=== PATIENT | male | born 1945 | race Caucasian/White ===

== ENCOUNTER → 2025-04-14 15:57 | Outpatient (CLI) | payer OTHER, SELFPAY ==
--- NOTE | 2025-04-14 16:04 | DI.RAD.S_ITS ---
PROCEDURE: XR CHEST 2V INDICATIONS: Fever TECHNIQUE: 2 views of the chest were acquired. COMPARISON: None. FINDINGS: Surgical changes and devices: None. Lungs and pleura: Lungs are clear. Biapical scarring is noted. No pleural effusions or pneumothorax. Mediastinum: Mediastinal contours are normal. Heart size is normal. Bones and chest wall: No suspicious bony abnormalities. Soft tissues appear unremarkable. IMPRESSION: No acute cardiopulmonary abnormality is seen. Approved by: Brandon Cortez M.D. on 04/15/2025 at 10:10
== END ==
LOC: RAD 16:02
PROVIDERS: Referring Provider Family Medicine; Visit Provider Family Medicine
DX: R50.9 Fever, unspecified (principal)
CPT/HCPCS: 71046